=== PATIENT | male | born 1975 | race Caucasian/White ===

== ENCOUNTER 2020-02-03 10:53 | Outpatient (CLI) | payer OTHER, SELFPAY ==
--- NOTE | ~2020-02-03 | XR_ITS ---
XR shoulder RT min 2V 02/03/2020 12:05 INDICATION: Right shoulder pain PROCEDURE: 4 views right shoulder COMPARISON: No prior studies for comparison. FINDINGS: Fracture, dislocation or subluxation is not identified. The soft tissues appear within norm al limits. No foreign bodies are identified. IMPRESSION: 1: NO ACUTE BONE OR JOINT ABNORMALITY IDENTIFIED. Reviewed, dictated and finalized at location A. EL ENGINEER
--- NOTE | 2020-02-03 12:00 | NEURO_ITS ---
Impression: # Complains of numbness of both hands. # Bilateral Carpal Tunnel Syndrome, left more than right, sensory more than motor. # Left ulnar neuropathy across the elbow. # Normal needle/EMG exam. # Clinical correlation recommended. Nerve Conduction Studies Anti Sensory Summary Table Stim Site NR Peak (ms) P-T Amp (?V) Site1 Site2 Delta-P (ms) Dist (cm) Guy (m/s) Left Median Anti Sensory (2-3nd Digit) Wrist 4.9 18.1 Wrist 2-3nd Digit 4.9 14.0 29 Wrist 4.3 24.1 Wrist 2-3nd Digit 4.9 14.0 29 Right Median Anti Sensory (2-3nd Digit) Wrist 4.2 9.4 Wrist 2-3nd Digit 4.2 14.0 33 Wrist 4.0 7.0 Wrist 2-3nd Digit 4.2 14.0 33 Left Radial Anti Sensory (Base 1st Digit) Wrist 1.8 9.3 Wrist Base 1st Digit 1.8 0.0 Right Radial Anti Sensory (Base 1st Digit) Wrist 2.2 50.5 Wrist Base 1st Digit 2.2 0.0 Left Ulnar Anti Sensory (5th Digit) Wrist 2.8 40.6 Wrist 5th Digit 2.8 14.0 50 Right Ulnar Anti Sensory (5th Digit) Wrist 2.8 22.4 Wrist 5th Digit 2.8 14.0 50 Motor Summary Table Stim Site NR Onset (ms) O-P Amp (mV) Site1 Site2 Delta-0 (ms) Dist (cm) Guy (m/s) Left Median Motor (Abd Poll Brev) Wrist 4.1 3.0 Elbow Wrist 5.7 31.0 54 Elbow 9.8 2.8 Right Median Motor (Abd Poll Brev) Wrist 4.1 1.3 Elbow Wrist 5.8 29.0 50 Elbow 9.9 4.4 Left Ulnar Motor (Abd Dig Minimi) Wrist 2.4 6.5 A Elbow Wrist 6.6 31.0 47 A Elbow 9.0 4.4 B Elbow Wrist 6.3 25.0 40 B Elbow 8.7 3.6 Right Ulnar Motor (Abd Dig Minimi) Wrist 2.8 6.4 A Elbow Wrist 5.7 31.0 54 A Elbow 8.5 4.4 F Wave Studies NR F-Lat (ms) L-R F-Lat (ms) Left Median (Mrkrs) (Abd Poll Brev) 31.63 0.64 Right Median (Mrkrs) (Abd Poll Brev) 32.27 0.64 Left Ulnar (Mrkrs) (Abd Dig Min) 32.82 0.06 Right Ulnar (Mrkrs) (Abd Dig Min) 32.88 0.06 EMG Side Muscle Nerve Root Ins Act Fibs Amp Dur Recrt Comment Right 1stDorInt Ulnar C8-T1 Nml Nml Nml Nml Nml Right Ext Indicis Radial (Post Int) C7-8 Nml Nml Nml Nml Nml Right Ext Digitorum Radial (Post Int) C7-8 Nml Nml Nml Nml Nml Right BrachioRad Radial C5-6 Nml Nml Nml Nml Nml Right PronatorTeres Median C6-7 Nml Nml Nml Nml Nml Right Abd Poll Brev Median C8-T1 Nml Nml Nml Nml Nml Left 1stDorInt Ulnar C8-T1 Nml Nml Nml Nml Nml Left Ext Indicis Radial (Post Int) C7-8 Nml Nml Nml Nml Nml Left Ext Digitorum Radial (Post Int) C7-8 Nml Nml Nml Nml Nml Left BrachioRad Radial C5-6 Nml Nml Nml Nml Nml Left PronatorTeres Median C6-7 Nml Nml Nml Nml Nml Left Abd Poll Brev Median C8-T1 Nml Nml Nml Nml Nml MTDD
== END 2020-02-03 10:54 | disposition home or self-care (01) ==
PROVIDERS: PCP Nurse Practitioner Family; Visit Provider Nurse Practitioner Family
DX: R20.0 Anesthesia of skin (principal); G56.03 Carpal tunnel syndrome, bilateral upper limbs; G56.22 Lesion of ulnar nerve, left upper limb
CPT/HCPCS: 73030; 95886; 95911

== ENCOUNTER 2021-03-02 14:05 | Emergency (ER) | payer BC, SELFPAY ==
--- NOTE | ~2021-03-02 | XR_ITS ---
EXAMINATION: XR chest 2V EXAM DATE: 03/02/2021 14:37 INDICATION: cough for several weeks . TECHNIQUE: Frontal and lateral projections of the chest obtained and reviewed. Comparison is made to prior examination from 01/07/2013. FINDINGS: The lungs are clear. There are no pleural effusions. The cardiomediastinal silhouette is within normal limits. There is no pneumothorax suspected. The bones and soft tissues are unremarkab le. IMPRESSION: Normal chest x-ray exam. Reviewed, dictated and finalized at location A. RIST CLIMBER IMPRESSION: Normal chest x-ray exam.
[2021-03-02 14:26] VITALS: BP 160/80; PULSE 56; RESP 18; TEMP 36.8; O2SAT 98
--- NOTE | 2021-03-02 14:42 | ED.URI ---
HPI - URI/Sore Throat General Chief Complaint: Upper Respiratory Infection Stated Complaint: congestion Time Seen by Provider: 03/02/21 14:42 Source: patient Mode of arrival: ambulatory Limitations: no limitations History of Present Illness HPI Narrative: Lawrence Nino is a 46 yo male with reported no PMH (although he had an echo 20 yrs ago for chest pain) comes to [facility] with a cough and pressure in his chest and sinuses since the day after Ol[place]a. He has tried using Mucinex and a couple doses of Flonase without much success. He states that he normally coughs because he smokes a pack of cigarettes a day but the mucus that he produces is clear white, today and yesterday its been yellow and he is concerned that he has an infection. Patient's blood pressure is elevated today at the visit and he states he does see his doctor occasionally. Elevated blood pressure should be followed up on within a week Patient denies being told he has history of hypertension or that he has any need for medications; I voiced my concern about this being cardiac in nature Related Data Allergies Allergy/AdvReac Type Severity Reaction Status Date / Time No Known Allergies Allergy Verified 03/02/21 14:31 Review of Systems Review of Systems: CONSTITUTIONAL: Denies fever, chills, sweats. EYES: Denies visual changes, redness, discharge. ENT: Denies rhinorrhea, congestion, sore throat, otalgia. Pressure in sinuses and chest CARDIOVASCULAR: Denies chest pain, palpitations, edema. RESPIRATORY: Denies dyspnea, wheezing, has cough GASTROINTESTINAL: Denies abdominal pain, nausea, vomiting, diarrhea. GENITOURINARY: Denies dysuria, hematuria, abnormal discharge SKIN: Denies rash or itching. NEUROLOGIC: Denies numbness, or focal weakness. PSYCHIATRIC: Denies anxiety or depression. [facility] Past Medical History Medical History Bilateral arm numbness and tingling while sleeping Right shoulder pain Surgical History Surgical History No history of previous surgery Family History Family History Grandparent Acute myocardial infarction Parkinson disease Social History Social History Smoking packs per day: 1 Smoking cigarettes per day: 20.0 Years smoked: 30 Smoking pack-years: 30.00 Smoking status: Current every day smoker Alcohol intake: current Comments At time of signature, I agree with nursing past medical, surgical, social and family history. There is no relevant family history pertinent to the presenting complaint. Exam Narrative: GENERAL: This is a well-nourished, well-developed patient, in mild distress. HEAD: normocephalic, atraumatic. EYES: Sclera clear/white. Vision is grossly intact. EARS: External ears normal, auditory canals with fluid behind TM bilaterally Hearing grossly intact. NOSE: External nose normal without nasal discharge, nares without redness, no rhinorrhea. THROAT: Mucous membranes moist, posterior pharynx mild erythema NECK: Neck supple, non-tender CARDIOVASCULAR: Bradycardic rate and rhythm without murmurs, gallops, or rubs. RESPIRATORY: Coarse to auscultation. Breath sounds equal bilaterally. No wheezes, rales, or rhonchi. GASTROINTESTINAL: Not performed SKIN: warm, intact with no suspicious lesions or rash, good texture and turgor. NEURO: awake, alert, and oriented to person, place and time. There were no obvious focal neurologic abnormalities. Steady gait EXTREMITIES: Normal range of motion. BACK: Nontender without deformity Course Course Emergency Course: [facility] and pressure over the sinuses and chest since the day after Ol[place], he has tried Mucinex and a few doses of Flonase without effect today he started coughing up yellow sputum Chest x-ray is
--- NOTE | 2021-03-02 15:00 | ECG_ITS ---
Measurements Intervals [place] Rate: 53 P: 58 OK: 136 QRS: -19 QRSD: 121 T: 48 QT: 431 QTc: 405 Interpretive Statements SINUS BRADYCARDIA INCOMPLETE RIGHT BUNDLE BRANCH BLOCK DELAYED PRECORDIAL R/S TRANSITION BORDERLINE ECG Electronically Signed On 03-02-2021 15:09:59 BREAD PACKER by Uziel Oglesby D.O.
== END 2021-03-02 15:20 | disposition home or self-care (01) ==
PROVIDERS: Emergency Provider Nurse Practitioner; PCP Nurse Practitioner Family
DX: R05.9 Cough, unspecified (principal); J01.10 Acute frontal sinusitis, unspecified
CPT/HCPCS: 71046; 93005; 99213; G0463

== ENCOUNTER 2021-03-13 09:22 | Outpatient (CLI) | payer BC, SELFPAY ==
--- NOTE | 2021-03-13 09:43 | EST_ITS ---
Patient Info Name: Lawrence Nino Age: 46 years : 1975 Gender: Male Ht: 72 in Wt: 200 lbs BSA: 2.16 m2 HR: 57 bpm BP: 130 / 86 mmHg Heart Rhythm: Sinus Rhythm Exam Date: 03/13/2021 9:57 AM Exam Location: [facility] Stress Patient Status: Outpatient Admit Date: 03/13/2021 Staff Ordering Physician: Tana Parker NP Attending Provider: Tana Parker NP Exercise Technologist: Nataliya Peñaloza CT Exercise Physician: Uziel Oglesby DO Exam Type: CA stress test treadmill Study Info Indications R00.1 - Bradycardia, unspecified An exercise stress test was performed. Summary 1. 1. Negative Julien exercise stress test for ischemic ST changes by ECG criteria. 2. 2. Good functional capacity, achieving 12 METs of workload. 3. 3. Hypertensive response to exercise. 4. 4. Appropriate HR response to exercise. 5. 5. Appropriate HR recovery at 1 minute post exercise. 6. 6. No imaging with stress testing. 7. 7. Patient informed of the above results. Protocol: Julien Stress ECG Details Stage: REST Duration (min): 1 min : 51 sec Speed (mph): 0.0 Grade (%): 0 HR (bpm): 56 SBP (mmHg): 130 DBP (mmHg): 86 METS: --- Stage: REST Duration (min): 4 min : 54 sec Speed (mph): 0.0 Grade (%): 0 HR (bpm): 59 SBP (mmHg): 130 DBP (mmHg): 86 METS: --- Stage: STAGE 1 Duration (min): 1 min : 0 sec Speed (mph): 1.7 Grade (%): 10 HR (bpm): 74 SBP (mmHg): 130 DBP (mmHg): 86 METS: --- Stage: STAGE 1 Duration (min): 2 min : 0 sec Speed (mph): 1.7 Grade (%): 10 HR (bpm): 79 SBP (mmHg): 130 DBP (mmHg): 86 METS: --- Stage: STAGE 1 Duration (min): 3 min : 0 sec Speed (mph): 1.7 Grade (%): 10 HR (bpm): 78 SBP (mmHg): 178 DBP (mmHg): 75 METS: --- Stage: STAGE 2 Duration (min): 1 min : 0 sec Speed (mph): 2.5 Grade (%): 12 HR (bpm): 87 SBP (mmHg): 178 DBP (mmHg): 75 METS: --- Stage: STAGE 2 Duration (min): 2 min : 0 sec Speed (mph): 2.5 Grade (%): 12 HR (bpm): 89 SBP (mmHg): 174 DBP (mmHg): 80 METS: --- Stage: STAGE 2 Duration (min): 3 min : 0 sec Speed (mph): 2.5 Grade (%): 12 HR (bpm): 90 SBP (mmHg): 174 DBP (mmHg): 80 METS: --- Stage: STAGE 3 Duration (min): 1 min : 0 sec Speed (mph): 3.4 Grade (%): 14 HR (bpm): 105 SBP (mmHg): 202 DBP (mmHg): 63 METS: --- Stage: STAGE 3 Duration (min): 2 min : 0 sec Speed (mph): 3.4 Grade (%): 14 HR (bpm): 113 SBP (mmHg): 202 DBP (mmHg): 63 METS: --- Stage: STAGE 3 Duration (min): 3 min : 0 sec Speed (mph): 3.4 Grade (%): 14 HR (bpm): 118 SBP (mmHg): 215 DBP (mmHg): 81 METS: --- Stage: STAGE 4 Duration (min): 1 min : 0 sec Speed (mph): 4.2 Grade (%): 16 HR (bpm): 134 SBP (mmHg): 215 DBP (mmHg): 81 METS: ---
== END 2021-03-13 09:23 | disposition home or self-care (01) ==
PROVIDERS: PCP Nurse Practitioner Family; Visit Provider Nurse Practitioner Family
DX: R00.1 Bradycardia, unspecified (principal); R07.89 Other chest pain
CPT/HCPCS: 93017

== ENCOUNTER 2021-10-25 11:14 | Emergency (ER) | payer BC, SELFPAY ==
[2021-10-25 11:39] VITALS: BP 133/79; PULSE 87; RESP 18; TEMP 37.7; O2SAT 97
--- NOTE | 2021-10-25 11:51 | ED.URI ---
HPI - URI/Sore Throat General Stated Complaint: fever Time Seen by Provider: 10/25/21 11:51 Source: patient and RN notes reviewed Mode of arrival: ambulatory Limitations: no limitations History of Present Illness HPI Narrative: 46-year-old male presented for complaint of episodes of cold sweats intermittently over the last 4 days. Endorses mild sinus congestion and cough. Has not taken anything for symptoms. Denies sick contacts. Denies any other symptoms. MD elicited complaint: cough Related Data Allergies Allergy/AdvReac Type Severity Reaction Status Date / Time No Known Allergies Allergy Verified 10/25/21 11:55 Review of Systems Review of Systems: CONSTITUTIONAL: Endorses chills, sweats, fever EYES: Denies visual changes, redness, or discharge ENT: Reports rhinorrhea, congestion, denies sinus pain, otalgia, sore throat CARDIOVASCULAR: Denies chest pain, palpitations, edema RESPIRATORY: Reports cough, post nasal drainage. Denies dyspnea GASTROINTESTINAL: Denies abdominal pain, nausea, vomiting, diarrhea SKIN: Denies rash or itching MUSCULOSKELETAL: denies myalgia NEUROLOGIC: Denies headache [facility] Past Medical History Medical History Bilateral arm numbness and tingling while sleeping Essential hypertension Right shoulder pain Surgical History Surgical History No history of previous surgery Family History Family History Grandparent Acute myocardial infarction Parkinson disease Social History Social History Social History: , lives in [place] with his . 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 Smoking packs per day: 1 Smoking cigarettes per day: 20.0 Years smoked: 30 Smoking pack-years: 30.00 Smoking status: Current every day smoker Alcohol intake: current Alcohol use details: occasionnally Substance use: never Substance use type: does not use Gender identity (if verbalized by the patient): Male Sexual Orientation (if Verbalized by the Patient): Straight or Heterosexual Agree to blood products: Yes Exam Narrative: GENERAL: well-appearing EYES: conjunctivae clear ENT: Mucous membranes moist. TM pearly vigil with dull light reflex bilaterally; no tragal tenderness. CHEST: Clear to auscultation, breath sounds equal. No wheezing, rhonchi, rales, or stridor. No respiratory distress, speaks in full sentences. HEART: Regular rate and rhythm. No murmur heard. SKIN: Warm, dry, no rash. NEURO: Alert and oriented x3. PSYCH: Normal mood and affect Course Course Emergency Course: Patient is aware of diagnosis, understands and agrees to treatment plan. Anticipatory guidance given. Patient agrees to follow-up as directed and is aware of reasons to seek care at the emergency department. Portions of this record may have been created with voice recognition software Level of Care: Express Care Visit Vital Signs Vital signs: Vital Signs Temperature 99.9 F H 10/25/21 11:39 Pulse Rate 87 10/25/21 11:39 Respiratory Rate 18 10/25/21 11:39 Blood Pressure 133/79 10/25/21 11:39 Pulse Oximetry 97 10/25/21 11:39 Oxygen Delivery Room Air 10/25/21 11:39 Temperature 99.9 F H 10/25/21 11:39 Pulse Rate 87 10/25/21 11:39 Respiratory Rate 18 10/25/21 11:39 Blood Pressure 133/79 10/25/21 11:39 Pulse Oximetry 97 10/25/21 11:39 Oxygen Delivery Room Air 10/25/21 11:39 reviewed MDM - URI/Sore Throat MDM Narrative Medical decision making narrative: COVID-positive, test result reviewed with patient. Advised supportive measures and signs/symptoms to go to the ER. Pt is appropriate for outpt treatment and f/u. Differential Diagnosis Differential diagnosis: Likely upper respiratory infection, sinusitis and viral
== END 2021-10-25 12:03 | disposition home or self-care (01) ==
PROVIDERS: Emergency Provider Nurse Practitioner Family; PCP Nurse Practitioner Family
DX: U07.1 COVID-19 (principal); F17.210 Nicotine dependence, cigarettes, uncomplicated; I10 Essential (primary) hypertension
CPT/HCPCS: 87426; 99213; C9803; G0463

== ENCOUNTER 2022-02-01 14:44 | Outpatient (CLI) | payer BC, SELFPAY ==
[2022-02-01 20:41] LABS: Alanine Aminotransferase 22 U/L (6-50); Albumin Level 4.3 g/dL (3.5-5.1); Alkaline Phosphatase 67 U/L (38-126); Anion Gap 3 mmol/L (8-16); Aspartate Amino Transferase 28 U/L (17-59); Bilirubin,Total 0.9 mg/dL (0.2-1.3); Blood Urea Nitrogen 19 mg/dL (9-20); Calcium 8.9 mg/dL (8.4-10.2); Carbon Dioxide 31 mmol/L (22-30); Chloride 105 mmol/L (98-107); Cholesterol 149 mg/dL (0-200); Estimated Glomerular Filt Rate > 60; Glucose 98 mg/dL (65-110); HDL Direct 51 mg/dL; Potassium 4.1 mmol/L (3.4-5.0); Sodium 139 mmol/L (137-145); Triglycerides 159 mg/dL (<150)
[2022-02-01 20:48] LABS: Basophils Percent Auto 0.5 % (0.2-1.2); Eosinophils Absolute Auto 0.2 K/mm3 (0-0.3); Eosinophils Percent Auto 2.9 % (0-4.4); Hematocrit 45.5 % (42.0-52.0); Hemoglobin 15.5 g/dL (14.0-18.0); Immature Granulocyte Absolute 0.02 K/mm3 (0.00-0.031); Immature Granulocyte Percent A 0.3 % (0-0.5); Lymphocytes Absolute Auto 2.32 K/mm3 (0.9-3.2); Lymphocytes Percent Auto 30.5 % (18.3-44.2); Mean Corpuscular HGB Conc 34.1 g/dl (32-36); Mean Corpuscular Hemoglobin 31.1 pg (26-34); Mean Corpuscular Volume 91.4 fl (80-100); Mean Platelet Volume 9.6 fl (7.4-10.4); Monocytes Absolute Auto 0.7 K/mm3 (0.1-0.6); Monocytes Percent Auto 8.9 % (2.6-8.5); Neutrophils Absolute Auto 4.3 K/mm3 (1.3-6.7); Neutrophils Percent Auto 56.9 % (45.5-73.1); Platelet Count Result 274 k/mm3 (150-375); Red Blood Count 4.98 M/mm3 (4.6-6.20); Red Cell Distribution Width 12.9 % (11.5-14.5); White Blood Count 7.6 K/mm3 (4.5-10.0)
[2022-02-01 20:52] LABS: LDL Cholesterol Direct 73 mg/dL
== END 2022-02-01 14:45 | disposition home or self-care (01) ==
LOC: ANHGOSHLAB 14:45
PROVIDERS: PCP Nurse Practitioner Family; Visit Provider Nurse Practitioner Family
DX: I10 Essential (primary) hypertension (principal); R63.4 Abnormal weight loss
CPT/HCPCS: 36415; 80053; 80061; 84443; 85025

== ENCOUNTER 2023-06-06 07:04 | Day surgery (SDC) | payer OTHER, SELFPAY ==
[2023-05-27 14:53] VITALS: BMI 24.7
--- NOTE | 2023-06-06 07:10 | PM.HPGS ---
History of Present Illness History of Present Illness Chief complaint: Right Carpal Tunnel Syndrome, Ulnar Nerve at Elbow Narrative: Patient seen and examined in pre-operative holding area. No interval change in medical history or symptoms. Patient recalls previous discussion of benefits and alternatives to procedure. Continues to desire to proceed with right endoscopic possible open carpal tunnel release and right cubital tunnel release. Reviewed procedure, post-op expectations and risks including but not limited to bleeding, infection, injury to tendon/nerve/vessel, decreased hand function, stiffness, RSD, no change or worsening of symptoms. I discussed the possible use of assistants and their participation in the case. Patient stated understanding and signed the consent form wishing to proceed. Review of Systems Review of Systems: All systems reviewed & are unremarkable except as noted in HPI and below PMFSH Past Medical History Medical History Bilateral arm numbness and tingling while sleeping Carpal tunnel syndrome Essential hypertension Right shoulder pain Surgical History Surgical History No history of previous surgery Family History Family History Grandparent Acute myocardial infarction Parkinson disease Social History Social History Social History: , lives in [place] with his . 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 Smoking packs per day: 1 Smoking cigarettes per day: 20.0 Years smoked: 30 Smoking pack-years: 30.00 Smoking status: Current every day smoker Tobacco type: cigarettes Alcohol intake: current Drinks per week: 12 Alcohol use details: occasionnally Substance use: current Substance use type: marijuana Other substance usage details: 3 X/MONTH Do You Feel Safe in your Home?: Yes Lack of Transportation: No Lack of Food: Never True Current Housing: I Have Housing Concerned About Future Housing: No Difficulty Paying Gas/Electric Bills: No Difficulty Paying for Meds: No Currently Unemployed: No Education: High School Diploma/GED Difficulty w/ Childcare or Family Care: No Living arrangements: with family Additional living arrangements comments: Occupation/Education: occupation Additional occupation/education comments: 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[employer] T[employer] Gender identity (if verbalized by the patient): Male Sexual Orientation (if Verbalized by the Patient): Straight or Heterosexual Spiritual care concerns: No Agree to blood products: Yes Meds Home Medications and Allergies Home Medications Medication Instructions Recorded Confirmed Type lisinopril 10 mg tablet 10 mg PO DAILY #90 tabs 04/19/23 05/27/23 Rx paroxetine HCl 20 mg tablet 20 mg PO DAILY #90 tabs 05/06/23 05/27/23 Rx tramadol 50 mg tablet 50 mg PO Q6H PRN pain #8 tabs 06/06/23 Rx Allergies Allergy/AdvReac Type Severity Reaction Status Date / Time sertraline [From Zoloft] AdvReac Mild Diarrhea Verified 05/27/23 14:52 Exam Narrative: unchanged Assessment and Plan Assessment and plan (1) Ulnar neuropathy at elbow of right upper extremity: Code(s): G56.21 - Lesion of ulnar nerve, right upper limb Status: Acute Assessment and Plan: cont as above (2) Carpal tunnel syndrome: Qualifiers: Laterality: bilateral Qualified Code(s): G56.03 - Carpal tunnel syndrome, bilateral upper limbs Code(s): G56.00 - Carpal tunnel syndrome, unspecified upper limb Status: Acute
--- NOTE | 2023-06-06 07:11 | W.PM.PROC2 ---
Procedure Note - Detailed Date of Procedure 06/06/23 Pre-op Diagnosis Right Carpal and cubital Tunnel Syndrome, Post-op Diagnosis Same Procedure Performed right ectr and CuTR Surgeon Mario Garnica MD [place] Worker Gayle Sim PA-C Anesthesia MAC Description of Procedure INFORMED CONSENT: The patient was seen and examined and marked in the pre-op area.? The patient signed the consent form. PROCEDURE IN DETAIL:The patient taken back to OR on the stretcher in supine position. Time out performed with anesthesia, surgeon and staff agreeing on patient's name site and surgery to be performed SCDs were placed on the lower extremities and inflated. A tourniquet was placed on {right} upper extremity and antibiotics given IV After anesthesia administered sedation I injected {10}cc 1%lido with epi and 0.5% marcaine plain at the operative sites The?{right upper extremity}?was prepped and draped in sterile fashion the??{right upper extremity} was? exsanguinated with Esmarch bandage and tourniquet inflated to 250mmHg I made a transverse incision in the {right} volar distal wrist crease through skin and dermis with 15 blade scalpel.? Littler scissors spread down to antebrachial fascia. A small incision was made in antebrachial fascia allowing access to Carpal tunnel. I proceeded with sequential dilation staying in line with the ring finger and hugging the hook of the hamate.? I then used the synovial elevator to free any adhesions from the underside of the transverse carpal ligament. Next I was able to insert the Microaire endoscopic carpal tunnel device with direct visualization of the transverse fibers on the monitor and proceeded with complete segmental retrograde release of the ligament in its entirety.? I irrigated with normal saline and closed with 4-0 monocryl for dermis and subcuticular closure. I next proceeded with making a longitudinal incision between two heads for flexor carpi ulnaris at end of {right} cubital tunnel with 15 blade scalpel.? Littler scissors were used to spread down to FCU fascia.? An incision was made in FCU fascia and ulnar nerve identified exiting cubital tunnel.? I proceeded with complete retrograde release of the cubital tunnel including 7cm proximal for the intermuscular septum.? The nerve appeared healthy with visible vaso nervorum.? There was no subluxation on full elbow range of motion. ? I irrigated with normal saline and closure with 4-0 monocryl for dermis and subcuticular. A dressing of Dermabond, 4x4, lucinda, and a volar wrist and posterior elbow splint was applied for patient safety, security, and comfort and secured with an robert bandage after the tourniquet was let down noting the hand was warm and well perfused. The patient was then awaken from anesthesia and transferred to the recovery room in stable condition.? Complications - none EBL- 0cc Disposition - home in stable conditions Gayle Sim PA-C was essential for positioning, retraction, closure and dressing placement [facility] Billing Surgery - Charge Forward: Surgery Billing ([id number] for gayle )
[2023-06-06 08:01] VITALS: BP 125/81; PULSE 50; RESP 18; TEMP 36.8; O2SAT 100
[2023-06-06] MEDS: LACTATED RINGERS 1,000 ML 30 ML IV CONT (08:08)
--- NOTE | 2023-06-06 08:34 | WPDANESEPPF ---
Anes - Initial Pre Proc Eval Procedure: Operation Date: 06/06/23 09:30 Proposed Procedures p Right Endoscopic Carpal Tunnel Release, Possible Open Carpal Tunnel Release - Mario Garnica MD s Right Cubital Tunnel Release - Mario Garnica MD Date/Time: 06/06/23 08:34 Surgeon: Mario Garnica MD Pre Op Diagnosis: Right Carpal Tunnel Syndrome, Ulnar Nerve at Elbow Patient Data Age: 48 Gender: M Height: 1.83 m Weight: 82.65 kg Last Vital Signs Temp 36.8 C 06/06/23 08:01 Pulse 50 L 06/06/23 08:01 Resp 18 06/06/23 08:01 BP 125/81 06/06/23 08:01 Pulse Ox 100 06/06/23 08:01 O2 Del Method Room Air 06/06/23 08:01 Allergies Allergy/AdvReac Type Severity Reaction Status Date / Time sertraline [From Zoloft] AdvReac Mild Diarrhea Verified 05/27/23 14:52 Home Medications Medication Instructions Recorded Confirmed Type lisinopril 10 mg tablet 10 mg PO DAILY #90 tabs 04/19/23 05/27/23 Rx paroxetine HCl 20 mg tablet 20 mg PO DAILY #90 tabs 05/06/23 05/27/23 Rx tramadol 50 mg tablet 50 mg PO Q6H PRN pain #8 tabs 06/06/23 Rx Patient hx anesthesia problems: none Family hx anesthesia problems: none Results Review: All pre-operative results and documents have been reviewed as part of the pre-operative evaluation. [facility] Past Medical History Medical History Bilateral arm numbness and tingling while sleeping Carpal tunnel syndrome Essential hypertension Right shoulder pain Surgical History Surgical History No history of previous surgery Family History Family History Grandparent Acute myocardial infarction Parkinson disease Social History Social History Social History: , lives in [place] with his . 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 Smoking packs per day: 1 Smoking cigarettes per day: 20.0 Years smoked: 30 Smoking pack-years: 30.00 Smoking status: Current every day smoker Tobacco type: cigarettes Alcohol intake: current Drinks per week: 12 Alcohol use details: occasionnally Substance use: current Substance use type: marijuana Other substance usage details: 3 X/MONTH Do You Feel Safe in your Home?: Yes Lack of Transportation: No Lack of Food: Never True Current Housing: I Have Housing Concerned About Future Housing: No Difficulty Paying Gas/Electric Bills: No Difficulty Paying for Meds: No Currently Unemployed: No Education: High School Diploma/GED Difficulty w/ Childcare or Family Care: No Living arrangements: with family Additional living arrangements comments: Occupation/Education: occupation 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 Gender identity (if verbalized by the patient): Male Sexual Orientation (if Verbalized by the Patient): Straight or Heterosexual Spiritual care concerns: No Agree to blood products: Yes Anes - Eval Final PreProcedure Day of Procedure 06/06/23 08:34 Patient weight: normal Heart: bradycardia Lungs: decreased breath sounds Airway: Mallampati scale class II Neurological: alert and oriented Last oral intake: >/= 8 hours ASA classification: III Emergent: no Anesthetic plan: proceed Anesthesia type and monitoring: general GIVS and standard monitoring Results Review: All pre-operative results and documents have been reviewed as part of the pre-operative evaluation. Informed Consent: The patient's anesthetic plan and its attendant risks and benefits were discussed with the patient/family/POA. Questions were solicited and answers provided to the satisfaction of the patient/family/POA.
[2023-06-06] MEDS: ceFAZolin SODIUM 2 GM/20 ML SW SYRINGE IV PUSH (09:03)
[2023-06-06] MEDS: BUPivacaine HCL 0.5% 10 ML AMP 5 ML INFILTRATE (09:06)
[2023-06-06] MEDS: LIDO 1%/EPINEPHRINE 1:100,000 50 ML VIAL INFILTRATE (09:06)
[2023-06-06 09:34] VITALS: BP 104/73; PULSE 50; RESP 14; O2SAT 99
--- NOTE | 2023-06-06 09:38 | WPDANESPN ---
Anes - Prog Note Post-Op Date/Time: 06/06/23 09:38 Cardiovascular status: normal Respiratory status: normal Airway patency: baseline Mental status: baseline Post-Op hydration status: normal Vital Signs: Last Vital Signs Temp 36.8 C 06/06/23 08:01 Pulse 50 L 06/06/23 08:01 Resp 18 06/06/23 08:01 BP 125/81 06/06/23 08:01 Pulse Ox 100 06/06/23 08:01 O2 Del Method Room Air 06/06/23 08:01 Pain Score (VAS): 0 Patient Feedback: Patient satisfied with anesthetic care.
[2023-06-06 09:44] VITALS: BP 118/78; PULSE 54; RESP 14; O2SAT 100
[2023-06-06 09:54] VITALS: BP 121/77; PULSE 44; RESP 14; O2SAT 100
[2023-06-06 10:04] VITALS: BP 132/73; PULSE 42; RESP 14; O2SAT 97
== END 2023-06-06 10:13 | disposition home or self-care (01) ==
PROVIDERS: PCP Family Medicine; Visit Provider Plastic Surgery
PROC: 01N54ZZ Release Median Nerve, Percutaneous Endoscopic Approach (ICD-10-PCS; CPT 29848; principal; 2023-06-06 09:30)
PROC: (CPT 64718; 2023-06-06 09:30)
DX: G56.01 Carpal tunnel syndrome, right upper limb (principal); G56.21 Lesion of ulnar nerve, right upper limb
CPT/HCPCS: 29848; 64718

== ENCOUNTER 2023-07-11 08:08 | Day surgery (SDC) | payer OTHER, SELFPAY ==
--- NOTE | 2023-07-10 14:46 | WPDANESEPPF ---
Anes - Initial Pre Proc Eval Procedure: Operation Date: 07/11/23 11:30 Proposed Procedures p Left Endoscopic Carpal Tunnel Release, Possible Open Carpal Tunnel Release - Mario Garnica MD s Left Cubital Tunnel Release - Mario Garnica MD Date/Time: 07/10/23 14:46 Surgeon: Mario Garnica MD Pre Op Diagnosis: Left Carpal Tunnel Syndrome, Ulnar Nerve @LT Elbow Patient Data Age: 48 Gender: M Height: 1.83 m Weight: 83.007 kg Allergies Allergy/AdvReac Type Severity Reaction Status Date / Time No Known Allergies Allergy Verified 07/11/23 10:34 Home Medications Medication Instructions Recorded Confirmed Type lisinopril 10 mg tablet 10 mg PO DAILY #90 tabs 04/19/23 07/11/23 Rx paroxetine HCl 20 mg tablet 20 mg PO DAILY #90 tabs 05/06/23 07/11/23 Rx tramadol 50 mg tablet 50 mg PO Q6H PRN pain #8 tabs 06/06/23 07/11/23 Rx tramadol 50 mg tablet 50 mg PO Q6H PRN pain #12 tabs 07/11/23 Rx Patient hx anesthesia problems: none Family hx anesthesia problems: none Results Review: All pre-operative results and documents have been reviewed as part of the pre-operative evaluation. [facility] Past Medical History Medical History (Updated 07/10/23 @ 14:47 by Larry Chase DO) Anxiety Bilateral arm numbness and tingling while sleeping Bradycardia Carpal tunnel syndrome Essential hypertension Right shoulder pain Surgical History Surgical History No history of previous surgery Family History Family History Grandparent Acute myocardial infarction Parkinson disease Social History Social History Social History: , lives in [place] with his . 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 Smoking packs per day: 1 Smoking cigarettes per day: 20.0 Years smoked: 30 Smoking pack-years: 30.00 Smoking status: Current every day smoker Tobacco type: cigarettes Alcohol intake: current Drinks per week: 12 Alcohol use details: occasionnally Substance use: current Substance use type: marijuana Other substance usage details: 3 X/MONTH Do You Feel Safe in your Home?: Yes Lack of Transportation: No Lack of Food: Never True Current Housing: I Have Housing Concerned About Future Housing: No Difficulty Paying Gas/Electric Bills: No Difficulty Paying for Meds: No Currently Unemployed: No Education: High School Diploma/GED Difficulty w/ Childcare or Family Care: No Living arrangements: with family Additional living arrangements comments: Occupation/Education: occupation 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 Gender identity (if verbalized by the patient): Male Sexual Orientation (if Verbalized by the Patient): Straight or Heterosexual Spiritual care concerns: No Agree to blood products: Yes Anes - Eval Final PreProcedure Day of Procedure 07/10/23 14:46 Patient weight: normal Heart: regular rate and rhythm Lungs: clear to auscultation and normal air movement Airway: Mallampati scale class II Neurological: alert and oriented Last oral intake: >/= 8 hours ASA classification: III Emergent: no Anesthetic plan: proceed Anesthesia type and monitoring: general GIVS and standard monitoring Results Review: All pre-operative results and documents have been reviewed as part of the pre-operative evaluation. Informed Consent: The patient's anesthetic plan and its attendant risks and benefits were discussed with the patient/family/POA. Questions were solicited and answers provided to the satisfaction of the patient/family/POA.
--- NOTE | 2023-07-11 07:03 | WPDHPUPDATE1 ---
History and Physical Update Update Date/Time: 07/11/23 07:03 Patient seen and examined in pre-operative holding area. No interval change in medical history or symptoms. Patient recalls previous discussion of benefits and alternatives to procedure. Continues to desire to proceed with left endocopic possible open carpal tunnel release and left cubital tunnel release. Reviewed procedure, post-op expectations and risks including but not limited to bleeding, infection, injury to tendon/nerve/vessel, decreased hand function, stiffness, RSD, no change or worsening of symptoms. I discussed the possible use of assistants and their participation in the case. Patient stated understanding and signed the consent form wishing to proceed.
--- NOTE | 2023-07-11 07:04 | P.OP_ITS ---
Procedure Note - Detailed Date of Procedure 07/11/23 Pre-op Diagnosis Left Carpaland cubital Tunnel Syndrome, Post-op Diagnosis Same Procedure Performed left ectr and CuTR Surgeon Mario Garnica MD Anesthesia MAC Description of Procedure INFORMED CONSENT: The patient was seen and examined and marked in the pre-op area.? The patient signed the consent form. PROCEDURE IN DETAIL:The patient taken back to OR on the stretcher in supine position. Time out performed with anesthesia, surgeon and staff agreeing on patient's name site and surgery to be performed SCDs were placed on the lower extremities and inflated. A tourniquet was placed on {left} upper extremity and antibiotics given IV After anesthesia administered sedation I injected {}cc 1%lido with epi and 0.5% marcaine plain at the operative site The?{left upper extremity}?was prepped and draped in sterile fashion the??{left upper extremity} was? exsanguinated with Esmarch bandage and tourniquet inflated to 250mmHg I made a transverse incision in the {left} volar distal wrist crease through skin and dermis with 15 blade scalpel.? Littler scissors spread down to antebrachial fascia. A small incision was made in antebrachial fascia allowing access to Carpal tunnel. I proceeded with sequential dilation staying in line with the ring finger and hugging the hook of the hamate.? I then used the synovial elevator to free any adhesions from the underside of the transverse carpal ligament. Next I was able to insert the Microaire endoscopic carpal tunnel device with direct visualization of the transverse fibers on the monitor and proceeded with complete segmental retrograde release of the ligament in its entirety.? I irrigated with normal saline and closed with 4-0 monocryl for dermis and subcuticular closure. I next proceeded with making a longitudinal incision between two heads for flexor carpi ulnaris at end of {left} cubital tunnel with 15 blade scalpel.? Littler scissors were used to spread down to FCU fascia.? An incision was made in FCU fascia and ulnar nerve identified exiting cubital tunnel.? I proceeded with complete retrograde release of the cubital tunnel including 7cm proximal for the intermuscular septum.? The nerve appeared healthy with visible vaso nervorum.? There was no subluxation on full elbow range of motion. ? I irrigated with normal saline and closure with 4-0 monocryl for dermis and subcuticular. The incisions were covered with Dermabond then 4x4s, lucinda, and a posterior elbow and volar wrist splint for patient safety, security and comfort and secured with robert bandages after the tourniquet was let down noting the hand was warm and well perfused.? Patient awaken from anesthesia and transferred to recovery in stable condition Complications - none EBL- 1cc Disposition - home in stable conditions [facility] [place] Billing Surgery - Charge Forward: Surgery Billing ([id number] )
[2023-07-11 10:43] VITALS: BMI 24.9
[2023-07-11 10:44] VITALS: BP 121/75; PULSE 55; RESP 16; TEMP 36.8; O2SAT 98
[2023-07-11] MEDS: LACTATED RINGERS 1,000 ML 30 ML IV CONT (11:15)
[2023-07-11] MEDS: ceFAZolin SODIUM 2 GM/20 ML SW SYRINGE IV PUSH (12:10)
[2023-07-11] MEDS: BUPivacaine HCL 0.5% PF 30 ML VIAL 10 ML INFILTRATE (12:15)
[2023-07-11] MEDS: LIDO 1%/EPINEPHRINE 1:100,000 20 ML VIAL 10 ML INFILTRATE (12:15)
[2023-07-11 12:43] VITALS: BP 106/63; PULSE 62; RESP 18; O2SAT 98
[2023-07-11 12:53] VITALS: BP 109/66; PULSE 55; RESP 18; O2SAT 98
[2023-07-11 13:03] VITALS: BP 114/69; PULSE 47; RESP 16; O2SAT 99
[2023-07-11 13:13] VITALS: BP 114/79; PULSE 48; RESP 14; O2SAT 99
--- NOTE | 2023-07-11 14:09 | WPDANESPN ---
Anes - Prog Note Post-Op Date/Time: 07/11/23 14:09 Cardiovascular status: normal Respiratory status: normal Airway patency: baseline Mental status: baseline Post-Op hydration status: normal Vital Signs: Last Vital Signs Temp 36.8 C 07/11/23 10:44 Pulse 48 L 07/11/23 13:13 Resp 14 07/11/23 13:13 BP 114/79 07/11/23 13:13 Pulse Ox 99 07/11/23 13:13 O2 Del Method Room Air 07/11/23 13:13 Pain Score (VAS): 0 I/O: Intake & Output 07/10/23 07/11/23 07/11/23 23:59 07:59 15:59 Intake Total 850 Balance 850 Post-procedural complaints: none Patient Feedback: Patient satisfied with anesthetic care. Other Findings: Patient vital signs back to baseline. Patient denies nausea and vomiting. Patient's pain under control. Patient OK for discharge.
== END 2023-07-11 13:26 | disposition home or self-care (01) ==
PROVIDERS: PCP Family Medicine; Visit Provider Plastic Surgery
PROC: 01N54ZZ Release Median Nerve, Percutaneous Endoscopic Approach (ICD-10-PCS; CPT 29848; principal; 2023-07-11 11:30)
PROC: (CPT 64718; 2023-07-11 11:30)
DX: G56.22 Lesion of ulnar nerve, left upper limb (principal); G56.02 Carpal tunnel syndrome, left upper limb
CPT/HCPCS: 29848; 64718

== ENCOUNTER 2023-09-22 09:33 | Emergency (ER) | payer BC, SELFPAY ==
[2023-09-22] VITALS (39 sets, daily range): BP systolic 117–170; BP diastolic 70–95; PULSE 41–86; RESP 12–21; TEMP 36.3–37.7; O2SAT 98–100
--- NOTE | 2023-09-22 10:19 | ECG_ITS ---
Test Date: 2023-09-22 10:37:02 Measurements Intervals [place] Rate: 50 P: 0 IA: 0 QRS: 81 QRSD: 200 T: 264 QT: 567 QTc: 517 Interpretive Statements SINUS RHYTHM SINUS ARREST AND WIDE QRS JUNCTIONAL ESCAPE RHYTHM ABNORMAL ECG No previous ECG available for comparison Electronically Signed On 09-23-2023 14:48:41 CDT by Antwan Shin M.D.
--- NOTE | 2023-09-22 10:20 | ED.GENADULT ---
HPI - General Adult General Chief complaint: Fever Stated complaint: chills, lightheaded Time Seen by Provider: 09/22/23 10:05 History of Present Illness HPI narrative: Patient is a 48-year-old male with a history of hypertension presenting with lightheadedness and sweating. States that he woke this morning and as he was resting in bed he started sweating profusely. His states it was dripping off of him. He got up and felt lightheaded and a bit nauseated though this has resolved. States that he did drink a fair amount of alcohol last night which is not normal for him. He is concerned that he is dehydrated. He denies infectious symptoms. He denies any pain. Related Data Allergies Allergy/AdvReac Type Severity Reaction Status Date / Time No Known Allergies Allergy Verified 09/22/23 09:33 Review of Systems Review of Systems: All systems reviewed & are unremarkable except as noted in HPI and below PMFSH Past Medical History Medical History Anxiety Bilateral arm numbness and tingling while sleeping Bradycardia Carpal tunnel syndrome Essential hypertension Right shoulder pain Surgical History Surgical History No history of previous surgery Family History Family History Grandparent Acute myocardial infarction Parkinson disease Social History Social History Social History: , lives in [place] with his . 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 Smoking packs per day: 1 Smoking cigarettes per day: 20.0 Years smoked: 30 Smoking pack-years: 30.00 Smoking status: Current every day smoker Tobacco type: cigarettes Alcohol intake: current Drinks per week: 12 Alcohol use details: occasionnally Substance use: current Substance use type: marijuana Other substance usage details: 3 X/MONTH Do You Feel Safe in your Home?: Yes Lack of Transportation: No Lack of Food: Never True Current Housing: I Have Housing Concerned About Future Housing: No Difficulty Paying Gas/Electric Bills: No Difficulty Paying for Meds: No Currently Unemployed: No Education: High School Diploma/GED Difficulty w/ Childcare or Family Care: No Living arrangements: with family Additional living arrangements comments: Occupation/Education: occupation 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 EYES: PERRLA and EOMI. ENT: Mucous membranes moist. NECK: Supple. CHEST: Clear to auscultation. No respiratory distress. HEART: Regular rate and rhythm ABDOMEN: Soft, nontender, nondistended EXTREMITIES: Normal range of motion. No edema. SKIN: Warm, dry, no rash. NEURO: No focal deficits. Alert and oriented x3. PSYCH: Normal mood and affect. Course Vital Signs Vital signs: Vital Signs Temperature 99.9 F H 09/22/23 09:42 Pulse Rate 57 L 09/22/23 09:42 Respiratory Rate 18 09/22/23 09:42 Blood Pressure 170/95 H 09/22/23 09:42 Pulse Oximetry 100 09/22/23 09:42 Oxygen Delivery Room Air 09/22/23 09:42 Temperature 98.4 F 09/22/23 14:14 Pulse Rate 58 L 09/22/23 13:30 Respiratory Rate 12 09/22/23 13:30 Blood Pressure 118/76 09/22/23 13:16 Pulse Oximetry 98 09/22/23 13:16 Oxygen Delivery Room Air 09/22/23 09:42 Medical Decision Making MDM Narrative Medical decision making narrative: 48-year-old male presenting with sweating and lightheadedness. Exam remarkable for the above.
[2023-09-22 10:33] LABS: Basophils Absolute Auto 0.1 K/mm3 (0.0-0.1); Basophils Percent Auto 0.4 % (0.2-1.2); Eosinophils Absolute Auto 0.1 K/mm3 (0-0.3); Eosinophils Percent Auto 0.9 % (0-4.4); Hematocrit 50.7 % (42.0-52.0); Hemoglobin 16.7 g/dL (14.0-18.0); Immature Granulocyte Absolute 0.06 K/mm3 (0.00-0.031); Immature Granulocyte Percent A 0.5 % (0-0.5); Lymphocytes Absolute Auto 1.86 K/mm3 (0.9-3.2); Mean Corpuscular HGB Conc 32.9 g/dl (32-36); Mean Corpuscular Hemoglobin 31.7 pg (26-34); Mean Corpuscular Volume 96.4 fl (80-100); Mean Platelet Volume 9.4 fl (7.4-10.4); Monocytes Absolute Auto 0.3 K/mm3 (0.1-0.6); Monocytes Percent Auto 2.8 % (2.6-8.5); Neutrophils Absolute Auto 9.2 K/mm3 (1.3-6.7); Neutrophils Percent Auto 79.4 % (45.5-73.1); Platelet Count Result 281 k/mm3 (150-375); Red Blood Count 5.26 M/mm3 (4.6-6.20); Red Cell Distribution Width 13.7 % (11.5-14.5); White Blood Count 11.6 K/mm3 (4.5-10.0)
[2023-09-22 10:34] LABS: Influenza A QL RT-PCR Negative (Negative); Influenza B QL RT-PCR Negative (Negative); RSV RNA, RT-PCR Negative (Negative); SARS-CoV-2 RNA PCR Negative (Negative)
[2023-09-22] MEDS: SODIUM CHLORIDE 0.9% IV 1,000 ML 999 ML IV CONT ×2 (10:34→11:24)
[2023-09-22 10:42] LABS: Alanine Aminotransferase 25 U/L (6-50); Albumin Level 5.1 g/dL (3.5-5.1); Alkaline Phosphatase 90 U/L (38-126); Anion Gap 18 mmol/L (4-12); Aspartate Amino Transferase 37 U/L (17-59); Blood Urea Nitrogen 25 mg/dL (9-20); Calcium 9.1 mg/dL (8.4-10.2); Carbon Dioxide 19 mmol/L (22-30); Chloride 102 mmol/L (98-107); Estimated CRCL calculation 86 ml/min; Estimated Glomerular Filt Rate > 60; Glucose 116 mg/dL (65-110); Sodium 139 mmol/L (137-145)
[2023-09-22 10:54] LABS: Troponin I < 0.012 ng/mL (0.000-0.034)
--- NOTE | 2023-09-22 11:18 | ECG_ITS ---
Test Date: 2023-09-22 11:27:14 Measurements Intervals [place] Rate: 54 P: 72 UT: 157 QRS: -3 QRSD: 100 T: 22 QT: 469 QTc: 448 Interpretive Statements SINUS BRADYCARDIA OTHERWISE UNREMARKABLE ECG Compared to ECG 09/22/2023 10:37:02 LOW JUNCTIONAL OR VENTRICULAR ESCAPE RHYTHM IS NO LONGER SEEN Electronically Signed On 09-23-2023 14:49:34 CDT by Antwan Shin M.D.
--- NOTE | 2023-09-22 13:18 | ECG_ITS ---
Test Date: 2023-09-22 13:39:43 Measurements Intervals [place] Rate: 56 P: 75 [place]: 150 QRS: -15 QRSD: 94 T: 36 QT: 454 QTc: 439 Interpretive Statements SINUS BRADYCARDIA BORDERLINE ECG Compared to ECG 09/22/2023 11:27:14 NO CHANGE Electronically Signed On 09-23-2023 15:25:53 CDT by Antwan Shin M.D.
[2023-09-22 13:55] LABS: Prothrombin Time 13.4 Seconds (11.1-14.7)
[2023-09-22 13:56] LABS: Partial Thromboplastin Time 27.1 Seconds (22.3-36.8); Troponin I < 0.012 ng/mL (0.000-0.034)
== END 2023-09-22 14:14 | disposition home or self-care (01) ==
PROVIDERS: Emergency Medicine; Emergency Provider Emergency Medicine; PCP Family Medicine
DX: R42 Dizziness and giddiness (principal); R61 Generalized hyperhidrosis; I10 Essential (primary) hypertension; F17.210 Nicotine dependence, cigarettes, uncomplicated; Z20.822 Contact with and (suspected) exposure to COVID-19
CPT/HCPCS: 36415; 80053; 83735; 84484; 85025; 85610; 85730; 87637; 93005; 96360; 96361; 99284; J7030